=== PATIENT | female | born 1940 | race Caucasian/White ===

== ENCOUNTER 2017-08-03 10:30 | Emergency (ER) | payer OTHER ==
[2017-08-03 10:37] VITALS: BMI 24.0
--- NOTE | 2017-08-03 11:02 | PDOC ---
History of Present Illness - General History Source: Patient Exam Limitations: No Limitations - History of Present Illness Initial Comments: 08/03/17 11:11 The patient is a 77 year old, Setswana speaking female with past medical history of hypertension and myasthenia gravis who presents to the ED with complaints of persistent productive cough for over one month. The patient states that the cough began as a dry cough, but it gradually became productive with white sputum. It is not associated with shortness of breath, fever or chills. She denies any nausea, vomiting, diarrhea, chest pain, or urinary symptoms. She denies any recent travel. <Candy Goodrich - Last Filed: 08/03/17 11:36> <Sharmila Mackenzie - Last Filed: 08/03/17 12:39> - General Chief Complaint: Respiratory Stated Complaint: COUGH Time Seen by Provider: 08/03/17 10:50 Past History <Candy Goodrich - Last Filed: 08/03/17 11:36> - Past Medical History Anemia: (THALASSEMIA) Cardiac Disorders: Yes (ckd, mild pulm hypertension) COPD: No GI Disorders: Yes (DIVERTICULITIS) HTN: Yes Thyroid Disease: No (MYESTHENIA GRAVIS) - Surgical History Abdominal Surgery: Yes (COLON RESECTION) - Suicide/Smoking/Psychosocial Hx Smoking History: Never smoked Hx Alcohol Use: No Drug/Substance Use Hx: No Substance Use Type: None <Sharmila Mackenzie - Last Filed: 08/03/17 12:39> - Past Medical History Allergies/Adverse Reactions: Allergies Allergy/AdvReac Type Severity Reaction Status Date / Time No Known Allergies Allergy Verified 08/03/17 10:37 Home Medications: Ambulatory Orders Calcium Carbonate/Vitamin D3 [Calcium 600 + Vit D 400 Softgl] 1 each PO DAILY Ergocalciferol [Vitamin D2] 50,000 unit PO Q7D@1000 11/16/14 Esomeprazole Mag Trihydrate [Nexium] 40 mg PO DAILY 11/16/14 Folic Acid 1 mg PO DAILY 11/16/14 Propylene Glycol/Peg 400/Pf [Systane 0.3-0.4% Eye Drops] 1 drop OU QID 11/16/14 Pyridostigmine [place] [Mestinon] 2 tab PO Q4H 11/16/14 Telmisartan [Micardis] 20 mg PO DAILY 11/16/14 Vitamin B Complex [B Complex] 1 each PO DAILY 11/16/14 Azithromycin [Zithromax 250mg Tablets -] 250 mg PO UTDICT #6 tab 08/03/17 Guaifenesin AC [Robitussin AC -] 5 ml PO HS PRN #20 ml MDD 5 mL 08/03/17 Review of Systems - Review of Systems Able to Perform ROS?: Yes Comments:: 08/03/17 11:11 GENERAL/CONSTITUTIONAL: No fever or chills. No weakness. HEAD, EYES, EARS, NOSE AND THROAT: No change in vision. No ear pain or discharge. No sore throat. CARDIOVASCULAR: No chest pain or shortness of breath. RESPIRATORY: Present: persistent productive cough No wheezing, or hemoptysis. GASTROINTESTINAL: No nausea, vomiting, diarrhea or constipation. GENITOURINARY: No dysuria, frequency, or change in urination. MUSCULOSKELETAL: No joint or muscle swelling or pain. No neck or back pain. SKIN: No rash NEUROLOGIC: No headache, vertigo, loss of consciousness, or change in strength/ sensation. ENDOCRINE: No increased thirst. No abnormal weight change. HEMATOLOGIC/LYMPHATIC: No anemia, easy bleeding, or history of blood clots. ALLERGIC/IMMUNOLOGIC: No hives or skin allergy. <[facility] - Last Filed: 08/03/17 11:36> *Physical Exam - Vital Signs Last Vital Signs Temp Pulse Resp BP Pulse Ox 98.2 F 89 20 146/85 95 08/03/17 10:33 08/03/17 10:33 08/03/17 10:33 08/03/17 10:33 08/03/17 10:33 <[place] - Last Filed: 08/03/17 11:36> - Vital Signs Last Vital Signs Temp Pulse Resp BP Pulse Ox 98.2 F 89 20 146/85 95 08/03/17 10:33 08/03/17 10:33 08/03/17 10:33 08/03/17 10:33 08/03/17 10:33 - Physical Exam Comments: GENERAL: Awake, alert, and fully oriented, in no acute distress. Well-appearing. HEAD: No signs of trauma EYES: PERRLA, EOMI, sclera anicteric, conjunctiva clear ENT: Auricles normal inspection, hearing grossly normal, nares patent, oropharynx clear without exudates. Moist mucosa NECK: Normal ROM, supple, no lymphadenopathy, JVD, or masses LUNGS: Breath sounds equal, clear to auscultation bilaterally. No wheezes, and no crackles. Intermittent loose cough. HEART: Regular rate and rhythm, normal S1 and S2, no murmurs, rubs or gallops ABDOMEN: Soft, nontender, normoactive bowel sounds. No guarding, no rebound. No masses EXTREMITIES: Normal range of motion, no edema. No clubbing or cyanosis. No cords, erythema, or tenderness NEUROLOGICAL: Cranial nerves II through XII grossly intact. Normal speech, normal gait SKIN: Warm, Dry, normal turgor, no rashes or lesions noted. <Sharmila Mackenzie - Last Filed: 08/03/17 12:39> ED Treatment Course - RADIOLOGY Radiograph Interpretation: 08/03/17 11:36 Chest X-ray as reviewed by Dr. Arias reports no signs of infiltrate or failure <Candy Goodrich - Last Filed: 08/03/17 11:36> *DC/Admit/Observation/Transfer - Attestations Scribe Attestion: 08/03/17 11:12 Documentation prepared by Candy Goodrich, acting as medical affairs director for Sharmila Mackenzie MD. <Candy Goodrich - Last Filed: 08/03/17 11:36> - Discharge Dispostion Admit: No <Sharmila Mackenzie - Last Filed: 08/03/17 12:39> Diagnosis at time of Disposition: Bronchitis - Discharge Dispostion Disposition: HOME Condition at time of disposition: Stable - Patient Instructions Printed Discharge Instructions: DI for Acute Bronchitis
[2017-08-03 12:22] VITALS: BP 108/67; PULSE 68; TEMP 98.4
== END 2017-08-03 12:49 | disposition home or self-care (01) ==
LOC: JER 10:30
DX: J40 Bronchitis, not specified as acute or chronic (principal); I10 Essential (primary) hypertension; G70.00 Myasthenia gravis without (acute) exacerbation; D56.9 Thalassemia, unspecified; K57.92 Diverticulitis of intestine, part unspecified, without perforation or abscess without bleeding
CPT/HCPCS: 71020-TC; 99282-25

== ENCOUNTER 2017-12-02 01:37 | Inpatient (IN) | payer OTHER ==
--- NOTE | 2017-12-02 03:16 | PDOC ---
History of Present Illness - General Chief Complaint: Injury Stated Complaint: FALL Time Seen by Provider: 12/02/17 02:37 History Source: Patient - History of Present Illness Initial Comments: 12/02/17 06:08 77-year-old female complaining of near syncopal episode while going to the bathroom patient reports that her pressure was very high. Patient reports dizziness at this time and headache. Denies chest pain/diaphoresis, 12/02/17 06:15 Past History - Past Medical History Allergies/Adverse Reactions: Allergies Allergy/AdvReac Type Severity Reaction Status Date / Time No Known Allergies Allergy Verified 08/03/17 10:37 Home Medications: Ambulatory Orders Calcium Carbonate/Vitamin D3 [Calcium 600 + Vit D 400 Softgl] 1 each PO DAILY Ergocalciferol [Vitamin D2] 50,000 unit PO Q7D@1000 11/16/14 Esomeprazole Mag Trihydrate [Nexium] 40 mg PO DAILY 11/16/14 Folic Acid 1 mg PO DAILY 11/16/14 Propylene Glycol/Peg 400/Pf [Systane 0.3-0.4% Eye Drops] 1 drop OU QID 11/16/14 Pyridostigmine [place] [Mestinon] 2 tab PO Q4H 11/16/14 Telmisartan [Micardis] 20 mg PO DAILY 11/16/14 Vitamin B Complex [B Complex] 1 each PO DAILY 11/16/14 Guaifenesin AC [Robitussin AC -] 5 ml PO HS PRN #20 ml MDD 5 mL 08/03/17 Cefpodoxime Proxetil [Vantin (Nf) -] 100 mg PO BID #10 tablet 12/03/17 Valsartan [Diovan] 80 mg PO DAILY tablet 12/03/17 Anemia: (THALASSEMIA) Cardiac Disorders: Yes (ckd, mild pulm hypertension) COPD: No GI Disorders: Yes (DIVERTICULITIS) HTN: Yes Thyroid Disease: No (MYESTHENIA GRAVIS) - Surgical History Abdominal Surgery: Yes (COLON RESECTION) - Suicide/Smoking/Psychosocial Hx Smoking History: Never smoked Hx Alcohol Use: No Drug/Substance Use Hx: No Substance Use Type: None Review of Systems - Review of Systems Able to Perform ROS?: Yes Is the patient limited Taiwanese proficient: No Constitutional: No: Symptoms Reported, See HPI, Chills, Diaphoresis, Fever, Loss of Appetite, Malaise, Night Sweats, Weakness, Weight Stable, Unintentional Wgt. Loss, Unexplained wgt Loss, Other Respiratory: No: Symptoms reported, See HPI, Cough, Orthopnea, Shortness of Breath, SOB with Exertion, SOB at Rest, Stridor, Wheezing, Productive cough, Hemoptysis, Other Cardiac (ROS): No: Symptoms Reported, See HPI, Chest Pain, Edema, Irregular Heart Rate, Lightheadedness, Palpitations, Syncope, Chest Tightness, Other Neurological: Yes: Headache, Dizziness. No: Symptoms reported, See HPI, Numbness, Paresthesia, Pre-Existing Deficit, Seizure, Tingling, Tremors, Weakness, Unsteady Gait, Ataxia, Other *Physical Exam - Vital Signs Last Vital Signs Temp Pulse Resp BP Pulse Ox 98.3 F 99 H 18 142/63 98 12/02/17 02:25 12/02/17 02:25 12/02/17 02:25 12/02/17 02:25 12/02/17 02:25 - Physical Exam General Appearance: Yes: Appropriately Dressed Respiratory/Chest: positive: Lungs Clear, Normal Breath Sounds Cardiovascular: positive: Regular Rhythm, Regular Rate Extremity: positive: Normal Capillary Refill, Normal Inspection, Normal Range of Motion Integumentary: positive: Normal Color, Dry, Warm Neurologic: positive: Fully Oriented, Alert, Normal Mood/Affect, Normal Response , Motor Strength 5/5, Other (right facial droop chronic) Heart Score/ECG Review - History History: Slightly suspicious - Electrocardiogram EKG: Non specific repolarization disturbance - Age Age: >/= 65 - Risk Factors Risk Factors Heart Score: Yes Hx Hypertension Based on the list above the patient has:: 1-2 risk factors - Troponin Troponin: </= normal limit - Score Heart Score - Total: 4 - ECG Intrepretation Rhythm: Regular Rhythm Comment:: 12/02/17 06:16 NSR: 67 bpm ED Treatment Course - LABORATORY CBC & Chemistry Diagram: 12/03/17 09:00 12/03/17 07:00 Medical Decision Making - Medical Decision Making A: near syncope CBC CMP cardiac enzymes EKG chest xray 12/02/17 06:17 patient to be admitted to for further monitoring. patient signed out to Dr. Whitt *DC/Admit/Observation/Transfer Diagnosis at time of Disposition: Near syncope, Dizziness - Discharge Dispostion Condition at time of disposition: Stable Admit: Yes - Prescriptions - Referrals - Patient Instructions - Post Discharge Activity
[2017-12-02 04:10] LABS: BASO % 0.6 % (0-2.0); EOS % 0.3 % (0-4.5); HEMATOCRIT 33.1 % (32.4-45.2); HEMOGLOBIN 10.7 GM/dL (10.7-15.3); LYMPH % 11.5 % (8-40); MCHC 32.2 g/dl (32.0-36.0); MEAN CELL VOLUME 58.8 fl (80-96); MEAN PLT VOLUME 8.7 fl (7.5-11.1); NEUT % 82.6 % (42.8-82.8); PLATELET COUNT 243 K/MM3 (134-434); RBC 5.63 M/mm3 (3.60-5.2); RDW 16.3 % (11.6-15.6); WHITE BLOOD COUNT 8.7 K/mm3 (4.0-10.0)
[2017-12-02 04:28] LABS: INR 0.99 (0.82-1.09); PROTHROMBIN TIME (PATIENT) 11.2 SEC (9.98-11.88)
[2017-12-02 04:37] LABS: ALBUMIN 3.5 g/dl (3.4-5.0); ANION GAP 5 (8-16); BILIRUBIN,TOTAL 0.3 mg/dL (0.2-1.0); BLOOD UREA NITROGEN 23 mg/dL (7-18); CHLORIDE 114 mmol/L (98-107); CO2 23 mmol/L (21-32); CREATININE 0.9 mg/dL (0.55-1.02); GLUCOSE,RANDOM 106 mg/dL (74-106); MAGNESIUM 1.9 mg/dL (1.8-2.4); POTASSIUM 4.3 mmol/L (3.5-5.1); SGOT/AST 26 U/L (15-37); SGPT/ALT 29 U/L (12-78); SODIUM 142 mmol/L (136-145); TOT PROT 6.8 g/dl (6.4-8.2)
[2017-12-02 04:39] LABS: ALK PHOS 99 U/L (45-117)
[2017-12-02 04:56] LABS: MCH 18.9 pg (25.7-33.7)
[2017-12-02 04:58] LABS: ADD RBC MORPHOLOGY YES
--- NOTE | 2017-12-02 05:12 | PDOC ---
*Physical Exam - Vital Signs Last Vital Signs Temp Pulse Resp BP Pulse Ox 98.3 F 99 H 18 142/63 98 12/02/17 02:25 12/02/17 02:25 12/02/17 02:25 12/02/17 02:25 12/02/17 02:25 ED Treatment Course - LABORATORY CBC & Chemistry Diagram: 12/02/17 04:00 12/02/17 04:00 - ADDITIONAL ORDERS Additional order review: Laboratory Results 12/02/17 12/02/17 04:00 04:00 PT with INR 11.20 INR 0.99 Sodium 142 Potassium 4.3 Chloride 114 H Carbon Dioxide 23 Anion Gap 5 L BUN 23 H Creatinine 0.9 Creat Clearance w eGFR > 60 Random Glucose 106 Calcium 8.0 L Magnesium 1.9 Total Bilirubin 0.3 D AST 26 ALT 29 Alkaline Phosphatase 99 Creatine Kinase 50 Troponin I < 0.02 Total Protein 6.8 Albumin 3.5 12/02/17 04:00 RBC 5.63 H MCV 58.8 L MCHC 32.2 RDW 16.3 H MPV 8.7 Neutrophils % 82.6 D Lymphocytes % 11.5 D Monocytes % 5.0 Eosinophils % 0.3 D Basophils % 0.6
--- NOTE | 2017-12-02 08:03 | HP ---
CHIEF COMPLAINT: Syncope with LOC PCP: Dr. Arnaldo Hayes HISTORY OF PRESENT ILLNESS: Patient is a 77 year old female with a significant past medical history of myesthenia gravis, left facial paralysis x 50 yrs, thalassemia, ckd, pulmonary hypertension, diverticulitis with colon resection and reversal. She presents to the ED today for a syncopal episode that occurred right before patient was about to sit in the toilet. Patient reports feeling dizzy when ambulating to the bathroom and when she went to sit on the toilet, she became lightheaded and "passed out" for about 3 seconds. Before she passed out, she called her sister for help. Her sister noted that patient was unresponsive for about 3 seconds and took her blood pressure with an electronic home device and the BP was 178/ 72. After the episode, the patient was awake and alert and they brought her in to the ED for further evaluation. Patient denies chest pain, denies fever or chills. No shortness of breath. Patent denies any history of seizures, denies any incontinence. Patient follows a neurologist at [facility] for the masthenia gravis. ER course was notable for: (1) head CT: mild to moderate volume loss and probable mild chronic microvascular ischemic disease changes. No gross acute intracranial pathology is identified. (2) EKG: NSR 67 (3) Trop negative Recent Travel: PAST MEDICAL HISTORY: myesthenia gravis, thalassemia, ckd, pulmonary hypertension, diverticulitis with colon resection and reversal PAST SURGICAL HISTORY: diverticulitis with colon resection and reversal Social History: Smoking: n/a Alcohol:n/a Drugs: n/a Family History: Allergies No Known Allergies Allergy (Verified 08/03/17 10:37) HOME MEDICATIONS: Home Medications Medication Instructions Recorded Calcium Carbonate/Vitamin D3 1 each PO DAILY 11/16/14 [Calcium 600 + Vit D 400 Softgl] Ergocalciferol [Vitamin D2] 50,000 unit PO Q7D@1000 11/16/14 Esomeprazole Mag Trihydrate 40 mg PO DAILY 11/16/14 [Nexium] Folic Acid 1 mg PO DAILY 11/16/14 Propylene Glycol/Peg 400/Pf 1 drop OU QID 11/16/14 [Systane 0.3-0.4% Eye Drops] Pyridostigmine [place] [Mestinon] 2 tab PO Q4H 11/16/14 Telmisartan [Micardis] 20 mg PO DAILY 11/16/14 Vitamin B Complex [B Complex] 1 each PO DAILY 11/16/14 Guaifenesin AC [Robitussin AC -] 5 ml PO HS PRN #20 ml MDD 5 mL 08/03/17 PHYSICAL EXAMINATION Vital Signs - 24 hr 12/02/17 02:25 Temperature 98.3 F Pulse Rate 99 H Respiratory 18 Rate Blood Pressure 142/63 O2 Sat by Pulse 98 Oximetry (%) GENERAL: Awake, alert, and fully oriented, in no acute distress. HEAD: left facial paralysis for apx 50 years, EYES: Pupils equal, round and reactive to light, extraocular movements intact, sclera anicteric, conjunctiva clear. No lid lag. EARS, NOSE, THROAT: Ears normal, nares patent, oropharynx clear without exudates. Moist mucous membranes. NECK: Normal range of motion, supple without lymphadenopathy, JVD, or masses. LUNGS: Breath sounds equal, clear to auscultation bilaterally. No wheezes, and no crackles. No accessory muscle use. HEART: Regular rate and rhythm, ABDOMEN: Soft, nontender, not distended, normoactive bowel sounds, no guarding, no rebound, no masses. No hepatomegaly or splenomegaly. MUSCULOSKELETAL: Normal range of motion at all joints. No bony deformities or tenderness. No CVA tenderness. UPPER EXTREMITIES:. No clubbing. No peripheral edema. LOWER EXTREMITIES: No calf tenderness. No peripheral edema. NEUROLOGICAL: Cranial nerves II-XII intact. Normal speech. Normal gait. PSYCHIATRIC: Cooperative. Good eye contact. Appropriate mood and affect. Laboratory Results - last 24 hr 12/02/17 12/02/17 12/02/17 04:00 04:00 04:00 WBC 8.7 RBC 5.63 H Hgb 10.7 Hct 33.1 MCV 58.8 L MCH 18.9 L MCHC 32.2 RDW 16.3 H Plt Count 243 MPV 8.7 Neutrophils % 82.6 D Lymphocytes % 11.5 D Monocytes % 5.0 Eosinophils % 0.3 D Basophils % 0.6 Hypochromia 3+ Microcytosis 3+ PT with INR 11.20 INR 0.99 Sodium 142 Potassium 4.3 Chloride 114 H Carbon Dioxide 23 Anion Gap 5 L BUN 23 H Creatinine 0.9 Creat Clearance w eGFR > 60 Random Glucose 106 Calcium 8.0 L Magnesium 1.9 Total Bilirubin 0.3 D AST 26 ALT 29 Alkaline Phosphatase 99 Creatine Kinase 50 Troponin I < 0.02 Total Protein 6.8 Albumin 3.5 ASSESSMENT/PLAN: Patient is a 77 year old female with a significant past medical history of myesthenia gravis, left facial paralysis x 50 yrs, thalassemia, ckd, pulmonary hypertension, diverticulitis with colon resection and reversal. She presents to the ED today for a syncopal episode that occurred right before patient was about to sit in the toilet. Patient reports feeling dizzy when ambulating to the bathroom and when she went to sit on the toilet, she became lightheaded and "passed out" for about 3 seconds. Before she passed out, she called her sister for help. Her sister noted that patient was unresponsive for about 3 seconds and took her blood pressure with an electronic home device and the BP was 178/ 72. After the episode, the patient was awake and alert and they brought her in to the ED for further evaluation. Patient denies chest pain, denies fever or chills. No shortness of breath. Patent denies any history of seizures, denies any incontinence. Patient follows a neurologist at [facility] for the masthenia gravis. Imaging: Head CT: mild to moderate volume loss and probable mild chronic microvascular ischemic disease changes. No gross acute intracranial pathology is identified. EKG: NSR 67 Echo pending Carotid doppler ordered Neuro Syncope and collapse, acute Myesthenia Gravis, chronic Left Facial paralysis, chronic Head CT negative for any acute findings Patient mental status intact on Mestinon 120mg q4 hours Follows a neurologist @ [facility] Lipid panel reviewed TSH pending Carotid u/s pending Started on ASA 81mg daily Physical therapy Monitor on tele Rule out infection, UA, UC BC Neuro consult Cardiology Rule out cardiac process of syncope Rule out ACS Hypertension Troponins negative x 2, trend one more EKG noted Echo pending Orthostatics q8 Cardiology consulted Pulmonary Pulmonary htn hx Monitor Heme Thalassemia, chronic monitor GI: Diverticulites with resection, history F.E.N. Fluids: PO adequate Electrolytes: monitor daily Nutrition: regular diet Prophy: GI: deferred DVT: LOS < 48 hrs Disposition. full code. Visit type - Emergency Visit Emergency Visit: Yes ED Registration Date: 12/02/17 Care time: The patient presented to the Emergency Department on the above date and was hospitalized for further evaluation of their emergent condition. - New Patient This patient is new to me today: Yes Date on this admission: 12/02/17 - Critical Care Critical Care patient: No Hospitalist Screening - Colonoscopy Questionnaire Colonoscopy Questionnaire: Colonoscopy Questionnaire - Patient: 50 - 75 years old and never had a screening colonoscopy: Unknown History of colon or rectal polyps, or CA: Unknown History of IBD, Crohn's disease or UC: Unknown History of abdominal radiation therapy as a child: Unknown - Relative: 1 with colon or rectal CA, or polyps at age 60 or younger: Unknown Colon or rectal CA diagnosed at age 45 or younger: Unknown Multiple relatives with colon or rectal CA: Unknown - Outcome: Screening Result: Negative Screen
[2017-12-02] MEDS: PYRIDOSTIGMINE BROMIDE 60 MG TABLET PO SCH ×3 (11:00→19:30)
--- NOTE | 2017-12-02 11:07 | EKG ---
Test Reason : Blood Pressure : / mmHG Vent. Rate : 067 BPM Atrial Rate : 067 BPM P-R Int : 162 ms QRS Dur : 072 ms QT Int : 420 ms P-R-T Axes : 084 007 074 degrees QTc Int : 443 ms NORMAL SINUS RHYTHM NONSPECIFIC T WAVE ABNORMALITY ABNORMAL ECG WHEN COMPARED WITH ECG OF 16-NOV-2014 12:13, VENT. RATE HAS DECREASED BY 40 BPM Confirmed by Erick Quiroga ([id number]) on 12/02/2017 11:06:43 AM Referred By: Confirmed By:Erick Quiroga
[2017-12-02] MEDS ORDERED: PYRIDOSTIGMINE BROMIDE 60 MG TABLET PO SCH (11:30)
[2017-12-02 12:38] LABS: CHOLESTEROL 158 mg/dL (50-200); TRIGLYCERIDES 90 mg/dL (35-160)
[2017-12-02] MEDS ORDERED: ARTIFICIAL TEARS (POLYVINYL ALCOHOL 1.4%) OPTH DROPS OU SCH (14:00)
[2017-12-02 14:18] LABS: HDL CHOLESTEROL 57 mg/dL (40-60); LDL CHOLESTEROL (ONLY SJRH) 96 mg/dL (5-100)
[2017-12-02] MEDS ORDERED: ASPIRIN COATED 81 MG TABLET.EC ONE (14:48)
[2017-12-02] MEDS: ASPIRIN COATED 81 MG TABLET.EC PO SCH (14:49)
--- NOTE | 2017-12-02 16:43 | CON.NEURO ---
Consult - Past Medical History Gastrointestinal: Yes: Diverticulitis - Past Surgical History Past Surgical History: Yes: Colectomy, Colostomy - Alcohol/Substance Use Hx Alcohol Use: No - Smoking History Smoking history: Never smoked Home Medications - Allergies Allergies/Adverse Reactions: Allergies Allergy/AdvReac Type Severity Reaction Status Date / Time No Known Allergies Allergy Verified 08/03/17 10:37 - Home Medications Home Medications: Ambulatory Orders Calcium Carbonate/Vitamin D3 [Calcium 600 + Vit D 400 Softgl] 1 each PO DAILY Ergocalciferol [Vitamin D2] 50,000 unit PO Q7D@1000 11/16/14 Esomeprazole Mag Trihydrate [Nexium] 40 mg PO DAILY 11/16/14 Folic Acid 1 mg PO DAILY 11/16/14 Propylene Glycol/Peg 400/Pf [Systane 0.3-0.4% Eye Drops] 1 drop OU QID 11/16/14 Pyridostigmine [place] [Mestinon] 2 tab PO Q4H 11/16/14 Telmisartan [Micardis] 20 mg PO DAILY 11/16/14 Vitamin B Complex [B Complex] 1 each PO DAILY 11/16/14 Guaifenesin AC [Robitussin AC -] 5 ml PO HS PRN #20 ml MDD 5 mL 08/03/17 Physical Exam-Neuro Vital Signs: Vital Signs Temperature 97.9 F 12/02/17 13:42 Pulse Rate 61 12/02/17 13:42 Respiratory Rate 14 12/02/17 13:42 Blood Pressure 118/57 12/02/17 13:42 O2 Sat by Pulse Oximetry (%) 95 12/02/17 13:42 Labs: CBC, BMP 12/02/17 04:00 12/02/17 04:00 INR, PTT INR 0.99 (0.82-1.09) 12/02/17 04:00 Assessment/Plan cc episode of passin gout and left bells palsy and myasthenia gravis HPI 77 year old female histoyr of myasthenia gravis, left bells palsy , ckd, diverticulosis. She came to hospital for brief passing out. There is no tonic clonic activyt. there is no tongue bite or incontinence. She had ct head , it was normal. There was no post ictal confusion. PAST MEDICAL HISTORY: myesthenia gravis, thalassemia, ckd, pulmonary hypertension, diverticulitis with colon resection and reversal PAST SURGICAL HISTORY: diverticulitis with colon resection and reversal ROS, FH, SH reviewed in chart NKDA HOME MEDICATIONS: Home Medications Medication Instructions Recorded Calcium Carbonate/Vitamin D3 1 each PO DAILY 11/16/14 [Calcium 600 + Vit D 400 Softgl] Ergocalciferol [Vitamin D2] 50,000 unit PO Q7D@1000 11/16/14 Esomeprazole Mag Trihydrate 40 mg PO DAILY 11/16/14 [Nexium] Folic Acid 1 mg PO DAILY 11/16/14 Propylene Glycol/Peg 400/Pf 1 drop OU QID 11/16/14 [Systane 0.3-0.4% Eye Drops] Pyridostigmine [place] [Mestinon] 2 tab PO Q4H 11/16/14 Telmisartan [Micardis] 20 mg PO DAILY 11/16/14 Vitamin B Complex [B Complex] 1 each PO DAILY 11/16/14 Guaifenesin AC [Robitussin AC -] 5 ml PO HS PRN #20 ml MDD 5 mL 08/03/17 Neurological Examination Alert follow command, speech is normal left sided LMN type facial paralysis, no nystagmus and eomi moving all extremity , 5/5 all ext sensation is normal reflex are grad3e [address] head showed white matter disease Assessment- Episode of passing out, syncope, No evidence of seizure 2. Mysthenia gravis stable continue mestinon at same dose 3. 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
[2017-12-02 17:24] LABS: URINE APPEARANCE CLEAR; URINE BILIRUBIN NEGATIVE (NEGATIVE); URINE BLOOD NEGATIVE (NEGATIVE); URINE COLOR LTYELLOW; URINE GLUCOSE (UA) NEGATIVE (NEGATIVE); URINE KETONE NEGATIVE (NEGATIVE); URINE NITRITE NEGATIVE (NEGATIVE); URINE PROTEIN NEGATIVE (NEGATIVE); URINE UROBILINOGEN NEGATIVE mg/dL (0.2-1.0)
[2017-12-02 17:28] LABS: URINE LEUK ESTERASE 3+ (NEGATIVE)
[2017-12-02 17:30] LABS: EPI CELLS RARE /HPF (FEW); URINE BACTERIA MODERATE /hpf (NONE SEEN); URINE MUCUS RARE
[2017-12-02] MEDS ORDERED: CEFTRIAXONE 1 GM/50 ML BAG ONE (18:46)
[2017-12-02] MEDS: CEFTRIAXONE 1 GM in DEXTROSE 5%-WATER - 50 ML IVPB SCH (18:52)
--- NOTE | 2017-12-02 19:32 | CON.CARD ---
Consult Consult Specialty:: cardiology Reason for Consultation:: syncope - History of Present Illness History of Present Illness: Patient is a 77 year old female (lee Davila), with a significant past medical history of myesthenia gravis, left facial paralysis x 50 yrs, thalassemia, ckd , pulmonary hypertension, diverticulitis with colon resection and reversal. She presents to the ED today for a syncopal episode that occurred right after walking to the bathroom and before patient was about to sit on the toilet; she became lightheaded and "passed out" for about 3 seconds. Before she passed out , she called her sister for help. Her sister noted that patient was unresponsive for about 3 seconds and took her blood pressure with an electronic home device and the BP was 178/72. After the episode, the patient was awake and alert and they brought her in to the ED for further evaluation. Patient denies chest pain, denies fever or chills. No shortness of breath. Patent denies any history of seizures, denies any incontinence. Patient follows a neurologist at [facility] for masthenia gravis. - Past Medical History Gastrointestinal: Yes: Diverticulitis - Past Surgical History Past Surgical History: Yes: Colectomy, Colostomy - Alcohol/Substance Use Hx Alcohol Use: No - Smoking History Smoking history: Never smoked Home Medications - Allergies Allergies/Adverse Reactions: Allergies Allergy/AdvReac Type Severity Reaction Status Date / Time No Known Allergies Allergy Verified 08/03/17 10:37 - Home Medications Home Medications: Ambulatory Orders Calcium Carbonate/Vitamin D3 [Calcium 600 + Vit D 400 Softgl] 1 each PO DAILY Ergocalciferol [Vitamin D2] 50,000 unit PO Q7D@1000 11/16/14 Esomeprazole Mag Trihydrate [Nexium] 40 mg PO DAILY 11/16/14 Folic Acid 1 mg PO DAILY 11/16/14 Propylene Glycol/Peg 400/Pf [Systane 0.3-0.4% Eye Drops] 1 drop OU QID 11/16/14 Pyridostigmine [place] [Mestinon] 2 tab PO Q4H 11/16/14 Telmisartan [Micardis] 20 mg PO DAILY 11/16/14 Vitamin B Complex [B Complex] 1 each PO DAILY 11/16/14 Guaifenesin AC [Robitussin AC -] 5 ml PO HS PRN #20 ml MDD 5 mL 08/03/17 Vital Signs: Vital Signs Temperature 97.9 F 12/02/17 13:42 Pulse Rate 65 12/02/17 17:25 Respiratory Rate 20 12/02/17 17:25 Blood Pressure 124/70 12/02/17 17:25 O2 Sat by Pulse Oximetry (%) 95 12/02/17 17:25 - Other Data Labs, Other Data: CBC, BMP 12/02/17 04:00 12/02/17 04:00 INR, PTT INR 0.99 (0.82-1.09) 12/02/17 04:00 Troponin, BNP 12/02/17 12/02/17 12/02/17 04:00 09:30 17:05 Troponin I < 0.02 < 0.02 < 0.02 Troponin, BNP 12/02/17 12/02/17 12/02/17 04:00 09:30 17:05 Troponin I < 0.02 < 0.02 < 0.02 Problem List - Problems (1) Syncope Code(s): R55 - SYNCOPE AND COLLAPSE (2) HTN (hypertension) Code(s): I10 - ESSENTIAL (PRIMARY) HYPERTENSION (3) Osteoporosis Code(s): M81.0 - AGE-RELATED OSTEOPOROSIS W/O CURRENT PATHOLOGICAL FRACTURE (4) Myasthenia gravis Code(s): G70.00 - MYASTHENIA GRAVIS WITHOUT (ACUTE) EXACERBATION
[2017-12-03] MEDS: PYRIDOSTIGMINE BROMIDE 60 MG TABLET PO SCH ×4 (00:23→13:01)
[2017-12-03 06:11] VITALS: BMI 20.7
[2017-12-03 09:10] LABS: BASO % 0.7 % (0-2.0); HEMATOCRIT 35.5 % (32.4-45.2); HEMOGLOBIN 11.1 GM/dL (10.7-15.3); LYMPH % 24.4 % (8-40); MCHC 31.2 g/dl (32.0-36.0); MEAN CELL VOLUME 59.7 fl (80-96); MEAN PLT VOLUME 8.5 fl (7.5-11.1); MONO % 6.1 % (3.8-10.2); NEUT % 66.8 % (42.8-82.8); PLATELET COUNT 256 K/MM3 (134-434); RBC 5.95 M/mm3 (3.60-5.2); RDW 16.8 % (11.6-15.6); WHITE BLOOD COUNT 8.5 K/mm3 (4.0-10.0)
[2017-12-03 09:14] LABS: MCH 18.6 pg (25.7-33.7)
[2017-12-03 09:15] LABS: ADD RBC MORPHOLOGY YES
[2017-12-03] MEDS ORDERED: ALBUTEROL SO4 2.5/IPRATROPIUM 0.5 INH SOL 3 ML VIAL.NEB. NEB ONE (09:29)
[2017-12-03] MEDS ORDERED: RACEPINEPHRINE IH SOL 2.25% 11.25 MG/0.5 ML VIAL NEB ONE (09:31)
[2017-12-03] MEDS ORDERED: CALCIUM 500MG/VIT-D 200 UNITS COMBO TABLET (FP) PO SCH (10:00)
[2017-12-03] MEDS ORDERED: VALSARTAN 80 MG TABLET (UD) PO SCH (10:00)
[2017-12-03] MEDS ORDERED: VITAMIN B COMP W-C 1 EA TABLET PO SCH (10:00)
[2017-12-03] MEDS ORDERED: FOLIC ACID 1 MG TABLET (FP) PO SCH (10:00)
[2017-12-03 10:07] LABS: ALBUMIN 3.5 g/dl (3.4-5.0); ALK PHOS 83 U/L (45-117); ANION GAP 7 (8-16); BILIRUBIN,TOTAL 0.6 mg/dL (0.2-1.0); CHLORIDE 113 mmol/L (98-107); CO2 23 mmol/L (21-32); CREATININE 0.8 mg/dL (0.55-1.02); GLUCOSE,RANDOM 101 mg/dL (74-106); MAGNESIUM 2.3 mg/dL (1.8-2.4); SGOT/AST 19 U/L (15-37); SGPT/ALT 25 U/L (12-78); SODIUM 143 mmol/L (136-145); TOT PROT 7.2 g/dl (6.4-8.2)
[2017-12-03 10:19] LABS: BLOOD UREA NITROGEN 23 mg/dL (7-18)
[2017-12-03 11:27] LABS: ANISOCYTOSIS 2+; PLATELET ESTIMATE ADEQUATE; TARGET CELLS 1+
--- NOTE | 2017-12-03 11:55 | EKG ---
Test Reason : Blood Pressure : / mmHG Vent. Rate : 062 BPM Atrial Rate : 062 BPM P-R Int : 166 ms QRS Dur : 070 ms QT Int : 432 ms P-R-T Axes : 082 -13 077 degrees QTc Int : 438 ms NORMAL SINUS RHYTHM NORMAL ECG WHEN COMPARED WITH ECG OF 02-DEC-2017 03:38, NO SIGNIFICANT CHANGE WAS FOUND Confirmed by FRANDY VENTURA, SANTY ([id number]) on 12/03/2017 11:54:47 AM Referred By: OFELIA JANG Confirmed By:SANTY WISE MD
[2017-12-03] MEDS ORDERED: CEFTRIAXONE 1 GM/50 ML BAG ONE (12:49)
[2017-12-03] MEDS: CEFTRIAXONE 1 GM in DEXTROSE 5%-WATER - 50 ML IVPB SCH (13:01)
[2017-12-03 13:05] VITALS: BP 145/75; PULSE 68; TEMP 97.6
[2017-12-03] MEDS: ASPIRIN COATED 81 MG TABLET.EC PO SCH (13:17)
[2017-12-09] MEDS ORDERED: ERGOCALCIFEROL (VITAMIN D2) 50,000 UNIT CAPSULE (FP) PO SCH (10:00)
== END 2017-12-03 13:53 | disposition home or self-care (01) | DRG 312 ==
LOC: JER 01:37 → JERBED 06:17 → UNDOADMIN 06:31
PROVIDERS: ADMIT Internal Medicine; ATTEND Nurse Practitioner Acute Care
DX: R55 Syncope and collapse (principal); I27.20 Pulmonary hypertension, unspecified; D56.9 Thalassemia, unspecified; I10 Essential (primary) hypertension; M81.0 Age-related osteoporosis without current pathological fracture; G70.00 Myasthenia gravis without (acute) exacerbation; N18.9 Chronic kidney disease, unspecified; G51.0 Bell's palsy
CPT/HCPCS: 36415; 70450-TC; 71046-TC-FY; 80053; 80061; 81003; 81015; 82550; 83036; 83721; 83735; 84443; 84484; 85025; 85610; 87086; 87186; 93005; 93010; 93306-TC; 93880-TC; 99285-25

== ENCOUNTER 2019-06-19 19:25 | Emergency (ER) | payer OTHER ==
[2019-06-19 19:37] VITALS: BP 124/56; PULSE 75; TEMP 97.4; BMI 23.0
--- NOTE | 2019-06-19 20:26 | PDOC ---
History of Present Illness - General Chief Complaint: Edema Stated Complaint: R EYE SWOLLEN Time Seen by Provider: 06/19/19 20:02 History Source: Patient Exam Limitations: No Limitations Past History - Past Medical History Allergies/Adverse Reactions: Allergies Allergy/AdvReac Type Severity Reaction Status Date / Time No Known Allergies Allergy Verified 08/03/17 10:37 Home Medications: Ambulatory Orders Calcium Carbonate/Vitamin D3 [Calcium 600 + Vit D 400 Softgl] 1 each PO DAILY Ergocalciferol [Vitamin D2] 50,000 unit PO Q7D@1000 11/16/14 Esomeprazole Mag Trihydrate [Nexium] 40 mg PO DAILY 11/16/14 Folic Acid 1 mg PO DAILY 11/16/14 Propylene Glycol/Peg 400/Pf [Systane 0.3-0.4% Eye Drops] 1 drop OU QID 11/16/14 Pyridostigmine [place] [Mestinon] 2 tab PO Q4H 11/16/14 Telmisartan [Micardis] 20 mg PO DAILY 11/16/14 Vitamin B Complex [B Complex] 1 each PO DAILY 11/16/14 Guaifenesin AC [Robitussin AC -] 5 ml PO HS PRN #20 ml MDD 5 mL 08/03/17 Cefpodoxime Proxetil [Vantin (Nf) -] 100 mg PO BID #10 tablet 12/03/17 Valsartan [Diovan] 80 mg PO DAILY tablet 12/03/17 Cephalexin Monohydrate [Keflex -] 500 mg PO BID #14 capsule 06/19/19 Erythromycin 0.5% Eye Ointment [Erythromycin 0.5% Eye Ointment -] 1 applic OD TID #1 tube 06/19/19 Anemia: (THALASSEMIA) Cardiac Disorders: Yes (ckd, mild pulm hypertension) COPD: No GI Disorders: Yes (DIVERTICULITIS) HTN: Yes Thyroid Disease: No (MYESTHENIA GRAVIS) - Surgical History Abdominal Surgery: Yes (COLON RESECTION) - Psycho Social/Smoking Cessation Hx Smoking History: Never smoked Hx Alcohol Use: No Drug/Substance Use Hx: No Substance Use Type: None *Physical Exam - Vital Signs Last Vital Signs Temp Pulse Resp BP Pulse Ox 97.4 F L 75 20 124/56 L 97 06/19/19 19:34 06/19/19 19:34 06/19/19 19:34 06/19/19 19:34 06/19/19 19:34 Discharge - Discharge Information Problems reviewed: Yes Clinical Impression/Diagnosis: Periorbital cellulitis of right eye Hordeolum externum (stye) Qualifiers: Laterality: right Eyelid: lower Qualified Code(s): H00.012 - Hordeolum externum right lower eyelid Condition: Stable Disposition: HOME - Admission No - Additional Discharge Information Prescriptions: Cephalexin Monohydrate [Keflex -] 500 mg PO BID #14 capsule Erythromycin 0.5% Eye Ointment [Erythromycin 0.5% Eye Ointment -] 1 applic OD TID #1 tube - Follow up/Referral - Patient Discharge Instructions Patient Printed Discharge Instructions: DI for Hordeolum Additional Instructions: You have a stye with periorbital cellulitis. this is an eye infection. Please use erythromycin ointment twice a day to the affected eye for one week. Take the Keflex as directed. Please wash her hands frequently Do not wear contact lenses until your infection clears Follow up with ophthalmology if her symptoms do not improve within a week. Return to the ER for visual changes, blurry vision, or any new or worsening symptoms. Tiene un orzuelo con celulitis periorbitaria. Esta es alex infeccin ocular. Use alex pomada de eritromicina dos veces al da para el manas afectado todd alex semana. [place] el Keflex segn las indicaciones. Por favor, lvese las maninder con frecuencia No use lentes de contacto hasta que roy infeccin desaparezca Mariah un seguimiento con oftalmologa si jocelin sntomas no mejoran en alex semana. Regrese a la sean de emergencias para tarun cambios visuales, visin borrosa o cualquier sntoma nuevo o que empeore. - Post Discharge Activity
== END 2019-06-19 20:40 | disposition home or self-care (01) ==
LOC: JERFT 19:25
DX: L03.213 Periorbital cellulitis (principal); H00.012 Hordeolum externum right lower eyelid; I12.9 Hypertensive chronic kidney disease with stage 1 through stage 4 chronic kidney disease, or unspecified chronic kidney disease; N18.9 Chronic kidney disease, unspecified; G70.00 Myasthenia gravis without (acute) exacerbation; D56.9 Thalassemia, unspecified; Z87.19 Personal history of other diseases of the digestive system
CPT/HCPCS: 99282-25

== ENCOUNTER 2020-08-04 11:30 | Emergency (ER) | payer OTHER ==
[2020-08-04 11:34] VITALS: BP 132/83; PULSE 108; TEMP 98.9; BMI 22.1
== END 2020-08-04 13:41 | disposition home or self-care (01) ==
LOC: JERFT 11:30
DX: H92.02 Otalgia, left ear (principal); R68.2 Dry mouth, unspecified
CPT/HCPCS: 99282-25

== ENCOUNTER 2022-07-08 08:42 | Emergency (ER) | payer OTHER ==
[2022-07-08 08:49] VITALS: BP 130/74; PULSE 95; RESP 18; TEMP 98; BMI 24.4
== END 2022-07-08 10:35 | disposition home or self-care (01) ==
LOC: JERFT 08:42
DX: B02.21 Postherpetic geniculate ganglionitis (principal)
CPT/HCPCS: 99282-25

== ENCOUNTER 2022-07-21 12:22 | Emergency (ER) | payer OTHER ==
[2022-07-21 12:29] VITALS: BP 164/87; RESP 18; TEMP 98.5; BMI 22.1
[2022-07-21 14:34] VITALS: PULSE 90
== END 2022-07-21 15:27 | disposition home or self-care (01) ==
LOC: JERFT 12:22
DX: H92.02 Otalgia, left ear (principal)
CPT/HCPCS: 99283-25

== ENCOUNTER 2024-04-26 17:14 | Emergency (ER) | payer OTHER ==
[2024-04-26 18:08] VITALS: BP 143/70; PULSE 83; RESP 18; TEMP 98.8; BMI 23.3
[2024-04-26] MEDS ORDERED: ACETAMINOPHEN 325 MG TABLET (FP) ONE (18:46)
[2024-04-26] MEDS: ACETAMINOPHEN 500 MG TABLET (FP) PO ONE (18:56)
[2024-04-26] MEDS ORDERED: IBUPROFEN 400 MG TABLET (FP) PO ONE (21:36)
[2024-04-26] MEDS: IBUPROFEN 400 MG TABLET (FP) PO ONE (21:49)
== END 2024-04-26 22:25 | disposition home or self-care (01) ==
LOC: JER 17:14
DX: S82.035A Nondisplaced transverse fracture of left patella, initial encounter for closed fracture (principal); R53.1 Weakness; W19.XXXA Unspecified fall, initial encounter
CPT/HCPCS: 73552-TC-LT-FY; 73560-TC-LT-FY; 73560-TC-RT-FY; 73590-TC-LT-FY; 99283-25

== ENCOUNTER 2025-03-21 08:18 | Inpatient (IN) | payer OTHER ==
[2025-03-21 08:38] VITALS: BMI 23.3
[2025-03-21 09:26] LABS: ABSOLUTE IMMATURE GRANULOCYTES 0.04 x10^3/uL (0.0-0.031); BASOPHILS # 0.03 x10^3/uL (0.01-0.08); EOSINOPHIL % 0.1 % (0.7-5.8); EOSINOPHILS # 0.01 x10^3/uL (0.04-0.36); MCHC 30.4 g/dl (32.2-35.5); MEAN CELL VOLUME 59.9 fl (79.4-94.8); MEAN PLT VOLUME 10.0 fl (9.4-12.3); MONOCYTE # 0.64 x10^3/uL (0.24-0.86); MONOCYTE % 4.8 % (4.7-12.5); RDW 18.2 % (12.5-17.0)
[2025-03-21 09:29] LABS: INR 1.05 (0.83-1.09); PROTHROMBIN TIME (PATIENT) 11.5 SEC (9.7-13.0)
[2025-03-21 09:32] LABS: ACTIVATED PTT 27.9 SECONDS (25.2-36.5)
[2025-03-21] MEDS ORDERED: ACETAMINOPHEN INJECTION 100 ML ONE (09:49)
[2025-03-21] MEDS ORDERED: FAMOTIDINE 20 MG/50 ML IVPB 20 MG/50 ML MG IVPB ONE (09:49)
[2025-03-21] MEDS ORDERED: ONDANSETRON 4 MG/2 ML VIAL ONE (09:49)
[2025-03-21] MEDS: ONDANSETRON 4 MG/2 ML VIAL IVPB ONE (10:15)
[2025-03-21] MEDS: FAMOTIDINE 20 MG/50 ML IVPB 20 MG/50 ML MG IVPB ONE (10:15)
[2025-03-21] MEDS: SODIUM CHLORIDE 0.9% 500 ML INFUS.BAG IV ONE (10:15)
[2025-03-21 10:44] LABS: CO2 23.0 mmol/L (21-32); GLUCOSE,RANDOM 121.0 mg/dL (74-106)
[2025-03-21 10:47] LABS: CREATININE 0.7 mg/dL (0.55-1.3); SGOT/AST 35.0 U/L (15-37); SGPT/ALT 30.0 U/L (13-61)
[2025-03-21 10:49] LABS: TOT PROT 7.5 g/dl (6.4-8.2)
[2025-03-21 10:50] LABS: ALK PHOS 79.0 U/L (45-117)
[2025-03-21] MEDS ORDERED: PIPERACILLIN/TAZOB 2.25 GM 2.25 GM/50 ML BAG IVPB ONE (11:07)
[2025-03-21] MEDS ORDERED: MAG HYDROX/AL HYDROX/SIMETH 30 ML UNIT-DOSE CUP ONE (11:07)
[2025-03-21] MEDS ORDERED: PIPERACILLIN/TAZOB 3.375 GM 3.375 GM/50 ML BAG IVPB ONE (11:08)
[2025-03-21] MEDS: PIPERACILLIN/TAZOB 3.375 GM 3.375 GM in DEXTROSE 5%-WATER - 50 ML IVPB ONE (11:13)
[2025-03-21] MEDS: MAG HYDROX/AL HYDROX/SIMETH 30 ML UNIT-DOSE CUP PO ONE (11:13)
[2025-03-21 11:24] LABS: URINE APPEARANCE CLEAR; URINE BILIRUBIN NEGATIVE (NEGATIVE); URINE COLOR YELLOW; URINE GLUCOSE (UA) NEGATIVE (NEGATIVE); URINE KETONE NEGATIVE (NEGATIVE); URINE LEUK ESTERASE NEGATIVE (NEGATIVE); URINE NITRITE NEGATIVE (NEGATIVE); URINE PROTEIN TRACE (NEGATIVE); URINE UROBILINOGEN 0.2 mg/dL (0.2-1.0)
[2025-03-21] MEDS: LACTATED RINGERS SOLUTION 1,000 ML/1,000 ML INFUS.BAG IV SCH (12:53)
[2025-03-21] MEDS ORDERED: NIFEdipine E.R 60 MG TABLET PO ONE (15:35)
[2025-03-21] MEDS: NIFEdipine E.R. 30 MG TABLET PO SCH (15:36)
[2025-03-21] MEDS: PYRIDOSTIGMINE BROMIDE 60 MG TABLET PO SCH (15:36)
[2025-03-21] MEDS: PIPERACILLIN/TAZOB 4.5 GM 4.5 GM in DEXTROSE 5%-WATER 100 ML IVPB SCH (20:59)
[2025-03-22] MEDS: ACETAMINOPHEN 1000 MG/100 ML BAG IVPB PRN (01:34)
[2025-03-22] MEDS: LOSARTAN POTASSIUM 50 MG TABLET PO SCH (09:08)
[2025-03-22 09:40] LABS: MCHC 30.4 g/dl (32.2-35.5); MEAN CELL VOLUME 58.8 fl (79.4-94.8); MEAN PLT VOLUME 9.6 fl (9.4-12.3); RDW 18.5 % (12.5-17.0)
[2025-03-22 10:41] LABS: CO2 26.0 mmol/L (21-32); GLUCOSE,RANDOM 106.0 mg/dL (74-106)
[2025-03-22 10:43] LABS: SGPT/ALT 52.0 U/L (13-61)
[2025-03-22 10:44] LABS: CREATININE 0.8 mg/dL (0.55-1.3); SGOT/AST 62.0 U/L (15-37)
[2025-03-22 10:45] LABS: TOT PROT 7.4 g/dl (6.4-8.2)
[2025-03-22 10:46] LABS: ALK PHOS 95.0 U/L (45-117)
[2025-03-22] MEDS ORDERED: BUPIVACAINE HCL/PF 0.25% (2.5MG/ML) 10 ML VIAL ONE (10:47)
[2025-03-22] MEDS: SODIUM CHLORIDE 1,000 ML IV SCH (12:54)
[2025-03-22] MEDS ORDERED: PROPOFOL 20 ML ONE (13:02)
[2025-03-22] MEDS ORDERED: MIDAZOLAM HCL 2 MG/2 ML SINGLE DOSE VIAL ONE (13:03)
[2025-03-22] MEDS ORDERED: ROCURONIUM BROMIDE 50 MG/5 ML SYRINGE ONE (13:04)
[2025-03-22] MEDS ORDERED: ACETAMINOPHEN INJECTION 100 ML ONE (13:36)
[2025-03-22] MEDS ORDERED: SUGAMMADEX SODIUM 200 MG/2 ML VIAL ONE (14:12)
[2025-03-22] MEDS: BUPIVACAINE HCL/PF 0.25% (2.5MG/ML) 10 ML VIAL IJ ONE ×2 (14:12)
[2025-03-22] MEDS ORDERED: KETOROLAC TROMETHAMINE 30 MG/1 ML VIAL ONE (14:57)
[2025-03-22] MEDS: LACTATED RINGERS SOLUTION 1,000 ML IV SCH ×2 (16:14→18:18)
[2025-03-22] MEDS ORDERED: PIPERACILLIN/TAZOB 4.5 GM 4.5 GM in DEXTROSE 5%-WATER 100 ML IVPB SCH (18:00)
[2025-03-22] MEDS: PYRIDOSTIGMINE BROMIDE 60 MG TABLET PO SCH (18:12)
[2025-03-22] MEDS: predniSONE 20 MG TABLET (UD) PO ONE (18:13)
[2025-03-22] MEDS: PIPERACILLIN/TAZOB 4.5 GM 4.5 GM in DEXTROSE 5%-WATER 100 ML IVPB SCH ×2 (19:46→21:24)
[2025-03-22] MEDS: POTASSIUM PHOSPHATE 15 MM in DEXTROSE 5%-WATER - 250 ML IVPB ONE (21:24)
[2025-03-22] MEDS ORDERED: MELATONIN 5 MG TABLETS PO SCH (22:45)
[2025-03-22] MEDS: MELATONIN 5 MG TABLETS PO SCH (23:55)
[2025-03-23] MEDS: ACETAMINOPHEN 1000 MG/100 ML BAG IVPB SCH (00:58)
[2025-03-23] MEDS: PYRIDOSTIGMINE BROMIDE 60 MG TABLET PO SCH (05:52)
[2025-03-23 09:03] LABS: MCHC 30.1 g/dl (32.2-35.5); MEAN CELL VOLUME 61.1 fl (79.4-94.8); MEAN PLT VOLUME 9.1 fl (9.4-12.3); RDW 18.6 % (12.5-17.0)
[2025-03-23 10:09] LABS: CO2 26.0 mmol/L (21-32); GLUCOSE,RANDOM 107.0 mg/dL (74-106)
[2025-03-23 10:11] LABS: CREATININE 0.8 mg/dL (0.55-1.3); SGOT/AST 83.0 U/L (15-37); SGPT/ALT 75.0 U/L (13-61)
[2025-03-23 10:13] LABS: ALK PHOS 98.0 U/L (45-117); TOT PROT 6.5 g/dl (6.4-8.2)
[2025-03-23] MEDS: NIFEdipine E.R. 30 MG TABLET PO SCH (10:20)
[2025-03-23] MEDS: predniSONE 20 MG TABLET (UD) PO SCH (10:21)
[2025-03-23] MEDS: LOSARTAN POTASSIUM 50 MG TABLET PO SCH (10:21)
[2025-03-23] MEDS: LIDOCAINE 4% PATCH TP SCH ×2 (15:03→15:18)
[2025-03-23] MEDS ORDERED: PHENOL 177 ML SPRAY BOTTLE MM PRN (17:02)
[2025-03-23] MEDS: PIPERACILLIN/TAZOB 3.375 GM 3.375 GM in DEXTROSE 5%-WATER - 50 ML IVPB SCH (17:24)
[2025-03-23] MEDS ORDERED: PYRIDOSTIGMINE BROMIDE 60 MG TABLET PO SCH (18:46)
[2025-03-23] MEDS: LIDOCAINE PATCH REMOVAL MC SCH (21:38)
[2025-03-23] MEDS ORDERED: LIDOCAINE PATCH REMOVAL MC SCH ×3 (22:00)
[2025-03-24] MEDS: hydrOXYzine PAMOATE 25 MG CAPSULE (FP) PO ONE (02:18)
[2025-03-24] MEDS ORDERED: ACETAMINOPHEN 325 MG TABLET (FP) PO PRN ×2 (07:11→07:12)
[2025-03-24] MEDS: ACETAMINOPHEN 325 MG TABLET (FP) PO SCH (08:10)
[2025-03-24] MEDS: AMOX TR/POT CLAV 875MG/125MG TABLETS (FP) PO SCH (08:37)
[2025-03-24 09:39] LABS: ABSOLUTE IMMATURE GRANULOCYTES 0.12 x10^3/uL (0.0-0.031); BASOPHILS # 0.03 x10^3/uL (0.01-0.08); EOSINOPHIL % 0.1 % (0.7-5.8); EOSINOPHILS # 0.02 x10^3/uL (0.04-0.36); MCHC 30.3 g/dl (32.2-35.5); MEAN CELL VOLUME 59.6 fl (79.4-94.8); MONOCYTE # 1.32 x10^3/uL (0.24-0.86); MONOCYTE % 6.9 % (4.7-12.5); RDW 18.4 % (12.5-17.0)
[2025-03-24] MEDS: PYRIDOSTIGMINE BROMIDE 60 MG TABLET PO SCH (09:59)
[2025-03-24] MEDS: predniSONE 10 MG TABLET (UD) PO SCH (09:59)
[2025-03-24] MEDS: LOSARTAN POTASSIUM 50 MG TABLET PO SCH (10:00)
[2025-03-24 11:02] VITALS: TEMP 98.1
[2025-03-24 11:45] LABS: CO2 29.0 mmol/L (21-32); GLUCOSE,RANDOM 93.0 mg/dL (74-106)
[2025-03-24 11:48] LABS: CREATININE 0.8 mg/dL (0.55-1.3); SGOT/AST 99.0 U/L (15-37); SGPT/ALT 111.0 U/L (13-61)
[2025-03-24 11:52] LABS: TOT PROT 6.9 g/dl (6.4-8.2)
[2025-03-24 11:53] LABS: ALK PHOS 124.0 U/L (45-117)
[2025-03-24 15:02] VITALS: BP 147/71; PULSE 73; RESP 18
[2025-03-24] MEDS: NAPH,MB-DB/K PH,MBDB POWDER PACKET PO ONE (16:11)
[2025-03-24] MEDS ORDERED: POTASSIUM PHOSPHATE 15 MM in DEXTROSE 5%-WATER - 250 ML IVPB ONE (16:30)
== END 2025-03-24 17:40 | disposition home or self-care (01) | DRG 419 ==
LOC: JER 08:18 → JERBED 11:01 → J6S 18:32
PROVIDERS: ADMIT Internal Medicine; ATTEND Internal Medicine
PROC: 0FT44ZZ Resection of Gallbladder, Percutaneous Endoscopic Approach (ICD-10-PCS; principal; 2025-03-22 17:30)
DX: K80.00 Calculus of gallbladder with acute cholecystitis without obstruction (principal); K21.9 Gastro-esophageal reflux disease without esophagitis; G70.00 Myasthenia gravis without (acute) exacerbation; I10 Essential (primary) hypertension; D56.9 Thalassemia, unspecified; D72.829 Elevated white blood cell count, unspecified; R10.11 Right upper quadrant pain
CPT/HCPCS: 36415; 71045-TC-FY; 74177-TC; 76705-TC; 80053; 81003; 82248; 83519; 83605; 83690; 83735; 84100; 84484; 85025; 85027; 85610; 85730; 86850; 86900; 86901; 87086; 87637-QW; 88304-TC; 93005; 93010; 94760; 97116-GP; 97161-GP; 99285-25; Q9967